=== PATIENT | female | born 2000 ===

== ENCOUNTER → 2022-10-09 | Outpatient (CLI) | payer OTHER | END | disposition home or self-care (01) | LOC: LAB SHORT 17:43 → LAB 17:43 | PROVIDERS: Family Medicine | DX: Z12.4 Encounter for screening for malignant neoplasm of cervix (principal) | CPT/HCPCS: G0145 ==

== ENCOUNTER → 2024-05-22 | Outpatient (CLI) | payer OTHER | END | disposition home or self-care (01) | LOC: LAB 14:04 → LAB SHORT 14:04 | DX: N39.0 Urinary tract infection, site not specified (principal) | CPT/HCPCS: 87086 ==

== ENCOUNTER 2024-12-10 00:04 | Observation (INO) | payer OTHER ==
[~2024-12-10] VITALS: Ht 160 cm; Wt 72.6 kg
[2024-12-10 01:04] LABS: BASOPHILS ABSOLUTE AUTO 0.06 K/mm3 (0.00-0.23); BASOPHILS PERCENT AUTO 1 % (0-2); EOSINOPHILS ABSOLUTE AUTO 0.07 K/mm3 (0.00-0.68); EOSINOPHILS PERCENT AUTO 1 % (0-6); Hemoglobin 14.3 g/dL (11.5-16.0); IMMATURE GRAN ABSOLUTE AUTO 0.02 K/mm3 (0.00-0.10); IMMATURE GRAN PERCENT AUTO 0 % (0-1); LYMPHOCYTES ABSOLUTE AUTO 2.49 K/mm3 (0.84-5.20); LYMPHOCYTES PERCENT AUTO 32 % (21-46); MONOCYTES ABSOLUTE AUTO 0.55 K/mm3 (0.16-1.47); MONOCYTES PERCENT AUTO 7 % (4-13); Mean Corpuscular HGB Conc 35.8 g/dL (31.5-36.5); Mean Corpuscular Volume 90 fL (80-100); Mean Platelet Volume 9.8 fL (9.1-12.4); NEUTROPHILS ABSOLUTE AUTO 4.63 K/mm3 (1.96-9.15); NEUTROPHILS PERCENT AUTO 59 % (41-73); Platelet Count 326 K/mm3 (150-400); RDW Coefficient Variation 12.5 % (11.7-14.2); RDW Standard Deviation 41.3 fL (35.1-46.3); Red Blood Cell Count 4.47 M/mm3 (3.80-5.20); White Blood Cell Count 7.82 K/mm3 (4.00-11.30)
[2024-12-10 01:33] LABS: Ethanol (Alcohol), Blood, Med 157 mg/dL; Salicylate <1.7 mg/dL (2.8-20.0)
[2024-12-10 01:37] LABS: Alanine Aminotransfer (ALT/SGP 26 U/L (12-78); Alk Phos 95 U/L (50-136); Anion Gap 11 mmol/L (3-11); Aspartate Aminotrans (AST/SGOT 23 U/L (12-37); Bilirubin, Total 0.4 mg/dL (0.1-1.0); Blood Urea Nitrogen 7 mg/dL (8-24); Bun/Creatinine Ratio 10.1 (12.0-20.0); CO2, Blood 22 mmol/L (21-32); Calcium, Blood 8.2 mg/dL (8.5-10.1); Chloride, Blood 109 mmol/L (98-108); Creatinine, Blood 0.69 mg/dL (0.40-1.00); Globulin, Blood 3.9 g/dL (2.2-4.0); Glomerular Filtration Rate 123 (60-); Glucose, Blood 86 mg/dL (70-99); Potassium, Blood 3.6 mmol/L (3.5-5.5); Sodium, Blood 138 mmol/L (136-145); Total Protein, Blood 7.9 g/dL (6.4-8.2)
[2024-12-10 01:48] LABS: Acetaminophen, Random <2.0 ug/mL (10.0-30.0)
[2024-12-10 02:06] LABS: U Amphetamine Screen Not Detected; U Barbituate Screen Not Detected; U Benzodiazapine Screen Not Detected; U Buprenorphine Screen Not Detected; U Cannabinoids Screen Not Detected; U Cocaine Screen Not Detected; U Methadone Screen Not Detected; U Methamphetamine Screen Not Detected; U Opiates Screen Not Detected; U Oxycodone Screen Not Detected; U Phencyclidine Screen Not Detected
[2024-12-10 10:30] VITALS: BP 120/83
[2024-12-10] MEDS ORDERED: Nicotine Polacrilex 2 MG Gum PO ONE (10:45)
[2024-12-10] MEDS ORDERED: Nicotine 21 MG PATCH TOP ONE (11:40)
[2024-12-10] MEDS ORDERED: Nicotine Polacrilex 2 MG Gum PO PRN (12:35)
[2024-12-12] MEDS ORDERED: Prozac20 MG PO (15:42)
[2024-12-12] MEDS ORDERED: NICO21TP TOP (15:43)
[2024-12-12] MEDS ORDERED: MULVITA PO (15:43)
== END 2024-12-10 14:18 | disposition other institution (70) ==
LOC: ER 00:04 → EOR 00:05
PROVIDERS: ADMIT Emergency Medicine
DX: R45.851 Suicidal ideations (principal)
CPT/HCPCS: 80053; 80320; 84443; 84703; 85025; 93005; 93010; 99285-25; A9270; G0378; G0480

== ENCOUNTER 2024-12-10 09:53 | Inpatient (IN) | payer OTHER ==
[~2024-12-10] VITALS: Ht 162.6 cm; Wt 75.0 kg
[2024-12-10] MEDS ORDERED: Aluminum Hydroxide 320MG/5ML 473 ML PO PRN (10:45)
[2024-12-10] MEDS ORDERED: Polyethylene Glycol 3350 17 gm PO PRN (10:45)
[2024-12-10] MEDS ORDERED: Ondansetron 4 MG SoluTab MM PRN (10:45)
[2024-12-10 13:25] VITALS: BP 118/77
[2024-12-10 13:49] VITALS: BP 118/77
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
--- NOTE | 2024-12-10 17:12 | NUR ---
SHIFT SUMMARY PT ADMITTED FROM ED TODAY. SHE IS A/O X4; PLEASANT AND COOPERATIVE WITH CARE. SHE DENIES SI, HI, AVTH. PT INTERACTING WITH PEERS ON THE MILEU AND PARTICIPATING IN ACTIVITIES. SHE CONTINUES TO BE MONITORED Q15 FOR SAFETY AND COMFORT.
[2024-12-10 19:14] VITALS: BP 113/78
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
[2024-12-11 08:05] VITALS: BP 122/63
[2024-12-11 08:26] LABS: CHOL/HDL RATIO 2.3; Cholesterol 149 mg/dL (50-200); HDL Cholesterol 64 mg/dL (>39); LDL/HDL RATIO 1.1; Low Density Lipoprotein Chol 72 mg/dL (0-110); Triglycerides 64 mg/dL (30-140); Very Low Density Lipoprot Chol 12 mg/dL (6-28)
[2024-12-11] MEDS ORDERED: Multivitamins 1 Tab PO SCH (09:00)
--- NOTE | 2024-12-11 11:41 | NUR ---
PT ALERT ORIENTED AND COOPERATIVE WITH CARE. PT DENIES SI, HI AND AVH. SHE HAS BEEN UP FOR BREAKFAST. INITIALLY DECLINED AM MEDS AND REQUESTED TO SPEAK WITH THE PROVIDER PRIOR TO TAKING MEDS. STATED THAT SHE HAS TAKEN ZOL[employer]FT IN THE PAST AND IT DIDN'T WORK WELL FOR HER. PROVIDER NOTIFIED DURING TEAM MEETING THIS AM AND HAS MET WITH PATIENT TODAY. PT MET WITH PROVIDER AND WAS AGREEABLE TO TAKING MEDICATIONS, MEDICATED PER EMAR.
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
--- NOTE | 2024-12-11 17:18 | NUR ---
SHIFT SUMMARY: PT REMAINED ALERT, ORIENTED AND COOPERATIVE WITH CARE. HAS DENIED SI, HI AND AVH. PT WAS MEDICATED PER EMAR AND WAS COMPMLIANT WITH MEDICATIONS. SHE WAS ACTIVE IN MILIEU AND PRESENT ON THE UNIT. SPENT TIME IN THE DAY ROOM WATCHING TV AND VISITING WITH PEERS AND STAFF. PT ATTENDED GROUPS AND MEALS.
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
[2024-12-11 20:10] VITALS: BP 112/71
--- NOTE | 2024-12-12 04:36 | NUR ---
Patient is A&OX4 and very pleasant and cooperative with both staff and her peers. Denied SI,HI and AVTH during evening assessment. Up in the milieu in the early evening, then snacks and early bedtime. Has been sleeping all night. Will continue close monitoring every 15 minutes for comfort and safety.
[2024-12-12 07:07] VITALS: BP 114/75
[2024-12-12] MEDS ORDERED: Prozac20 MG PO ×2 (15:42)
[2024-12-12] MEDS ORDERED: NICO21TP TOP ×2 (15:43)
[2024-12-12] MEDS ORDERED: MULVITA PO ×2 (15:43)
--- NOTE | 2024-12-12 16:20 | NUR ---
DISCHARGE PT A/O X4; PLEASANT AND COOPERATIVE WITH CARE. SHE DENIES SI, HI, HALLUCINATIONS. PT'S HOLD DROPPED AND SHE IS TO DISCHARGE HOME WITH MOTHER AND SISTER. NEW MEDICATIONS FAXED TO [facility]. SAFETY PLAN COMPLETED WITH PT. PT GIVEN RETURN TO WORK FORM. DISCHARGE INSTRUCTIONS GONE OVER WITH PT AND SHE VERBALIZED UNDERSTANDING. BELONGINGS RETURNED AND PT LEFT THE UNIT AT 1616.
== END 2024-12-12 16:16 | disposition home or self-care (01) | DRG 885 ==
LOC: BHU 09:53
PROVIDERS: ADMIT Student in an Organized Health Care Education/Training Program
DX: F33.2 Major depressive disorder, recurrent severe without psychotic features (principal); R45.851 Suicidal ideations; F10.90 Alcohol use, unspecified, uncomplicated; Y90.6 Blood alcohol level of 120-199 mg/100 ml; Z91.041 Radiographic dye allergy status; Z98.890 Other specified postprocedural states; Z79.899 Other long term (current) drug therapy
CPT/HCPCS: 36415; 80061; 83036; A9270

== ENCOUNTER → 2025-05-25 | Outpatient (CLI) | payer OTHER ==
[~2025-05-25] MED LIST: MULVITA PO; NICO21TP TOP; Prozac20 MG PO
== END ==
LOC: LAB 17:43 → LAB SHORT 17:43
DX: N39.0 Urinary tract infection, site not specified (principal)
CPT/HCPCS: 87086